=== PATIENT | male | born 1970 | race Caucasian/White ===

== ENCOUNTER 2016-09-05 10:35 | Emergency (ER) | payer BC, OTHER ==
[2016-09-05 10:52] VITALS: BP 148/103
--- NOTE | 2016-09-05 11:14 | EDM.PDOC ---
ED HPI GENERAL MEDICAL PROBLEM - General Chief Complaint: Respiratory Problem Stated Complaint: COUGHING UP BLOOD Time Seen by Provider: 09/05/16 11:00 Source of Information: Reports: Patient History Limitations: Reports: No Limitations - History of Present Illness INITIAL COMMENTS - FREE TEXT/NARRATIVE: The patient presents because he is coughing up blood. This started today. He feels like there is something in the back of his throat. He cannot clear it. After he tries to do that he gets some blood in the back of his throat. He has no fever, chills, chest pain or shortness of breath. He has no vomiting or diarrhea. He does have a sore throat. This has never happened to him before. He has no history of DVT or PE. Onset: Gradual Duration: Hour(s): Location: Reports: Head (Throat) Quality: Reports: Sharp Severity: Moderate Improves with: Reports: None Worsens with: Reports: None Context: Reports: Activity (This happened at work) Associated Symptoms: Reports: Cough. Denies: Diaphoresis, Fever/Chills, Nausea/ Vomiting, Shortness of Breath Throat Pain Score (Numeric/FACES): 4 - Related Data Allergies Allergy/AdvReac Type Severity Reaction Status Date / Time insulin aspart protamine Allergy Swelling Verified 09/05/16 10:52 human lisinopril Allergy Cough Verified 09/05/16 10:52 meloxicam [From Mobic] Allergy Swelling Verified 09/05/16 10:52 Home Meds: Home Meds Albuterol Sulfate [Proair Hfa] 2 puff IH Q4H PRN 09/05/16 [History] Aspirin 81 mg PO DAILY 09/05/16 [History] Budesonide/Formoterol [Symbicort 160-4.5 MCG] 2 puff INH BID 09/05/16 [History] Hydrochlorothiazide 12.5 mg PO DAILY 09/05/16 [History] Hydrocodone/Acetaminophen [Hydrocodon-Acetaminophen 5-325] 1 - 2 each PO Q6HR PRN #10 tablet 09/05/16 [Rx] Ibuprofen [Motrin] 800 mg PO Q8H 09/05/16 [History] Losartan [Cozaar] 100 mg PO DAILY 09/05/16 [History] Penicillin V Potassium 500 mg PO Q6HR #40 tab 09/05/16 [Rx] Pravastatin Sodium [Pravastatin (Pravachol)] 40 mg PO DAILY 09/05/16 [History] Pregabalin [Lyrica] 300 mg PO BID 09/05/16 [History] QUEtiapine [SEROquel] 50 mg PO BEDTIME 09/05/16 [History] Venlafaxine [Venlafaxine HCl ER] 2.5 tab PO BID 09/05/16 [History] Past Medical History Cardiovascular History: Reports: High Cholesterol, Hypertension Respiratory History: Reports: Asthma Gastrointestinal History: Reports: Diverticulosis Musculoskeletal History: Reports: Fibromyalgia Psychiatric History: Reports: Anxiety, Depression, PTSD - Past Surgical History HEENT Surgical History: Reports: Tonsillectomy GI Surgical History: Reports: Cholecystectomy, Hernia Repair/Other, Other (See Below) Other GI Surgeries/Procedures: sigmoid colectomy Male Surgical History: Reports: Vasectomy Neurological Surgical History: Reports: Discectomy, Lumbar Spine Social & Family History - Tobacco Use Smoking Status *Q: Never Smoker - Caffeine Use Caffeine Use: Reports: Coffee - Recreational Drug Use Recreational Drug Use: No ED ROS GENERAL - Review of Systems Review Of Systems: See Below Constitutional: Reports: No Symptoms HEENT: Reports: Throat Pain Respiratory: Reports: No Symptoms Cardiovascular: Reports: No Symptoms Endocrine: Reports: No Symptoms GI/Abdominal: Reports: No Symptoms : Reports: No Symptoms Musculoskeletal: Reports: No Symptoms Skin: Reports: No Symptoms ED EXAM, GENERAL - Physical Exam Exam: See Below Exam Limited By: No Limitations General Appearance: Alert, No Apparent Distress Ears: Normal External Exam Nose: Normal Inspection Throat/Mouth: Other (Edema of the uvula and the oropharynx with some dried blood.) Head: Atraumatic, Normocephalic Neck: Normal Inspection Respiratory/Chest: No Respiratory Distress, Lungs Clear, Normal Breath Sounds Cardiovascular: Regular Rate, Rhythm, No Edema, No Murmur GI/Abdominal: Soft, Non-Tender, No Organomegaly, No Mass Back Exam: Normal Inspection Extremities: Normal Inspection Course - Vital Signs Last Recorded V/S: Last Vital Signs Temp 98.0 F 09/05/16 10:48 Pulse 97 09/05/16 10:48 Resp 18 09/05/16 10:48 BP 148/103 H 09/05/16 10:48 Pulse Ox 99 09/05/16 10:48 - Orders/Labs/Meds Orders: Active Orders 24 hr Category Date Time Status CULTURE STREP A CONFIRMATION [RM] Stat Lab 09/05/16 11:08 Results STREP SCRN A RAPID W CULT CONF [RM] Stat Lab 09/05/16 11:08 Results methylPREDNISolone Sod Succ [Solu-MEDROL] Med 09/05/16 12:00 Once 125 mg IM ONETIME ONE - Re-Assessments/Exams Free Text/Narrative Re-Assessment/Exam: 09/05/16 12:01 His rapid strep is negative. I am worried about pharyngitis from another bacteria. I will get him on an antibiotic. Departure - Departure Time of Disposition: 12:15 Disposition: Home, Self-Care 01 Condition: Good Clinical Impression: Uvular edema Pharyngitis Qualifiers: Pharyngitis/tonsillitis etiology: other specified organisms Qualified Code(s): J02.8 - Acute pharyngitis due to other specified organisms - Discharge Information Prescriptions: Hydrocodone/Acetaminophen [Hydrocodon-Acetaminophen 5-325] 1 - 2 each PO Q6HR PRN #10 tablet PRN Reason: Pain Penicillin V Potassium 500 mg PO Q6HR #40 tab Referrals: Crystal Gardner DO [Primary Care Provider] - Forms: ED Department Discharge, ED Return to Work/School Form Additional Instructions: Take the medications as prescribed. You may also take motrin or aleve for the swelling. Drink ice cold water a few times per day to help with the swelling. Please return if you are worse. - My Orders Last 24 Hours: My Active Orders 09/05/16 11:08 CULTURE STREP A CONFIRMATION [RM] Stat STREP SCRN A RAPID W CULT CONF [RM] Stat 09/05/16 12:00 methylPREDNISolone Sod Succ [Solu-MEDROL] 125 mg IM ONETIME ONE - Assessment/Plan Last 24 Hours: My Active Orders 09/05/16 11:08 CULTURE STREP A CONFIRMATION [RM] Stat STREP SCRN A RAPID W CULT CONF [RM] Stat 09/05/16 12:00 methylPREDNISolone Sod Succ [Solu-MEDROL] 125 mg IM ONETIME ONE
[2016-09-05] MEDS ORDERED: methylPREDNISolone Sodium Succinate 125 MG/2 ML SDV IM ONE (12:00)
== END 2016-09-05 12:25 | disposition home or self-care (01) ==
LOC: JD.ED 10:35
DX: J02.8 Acute pharyngitis due to other specified organisms (principal); I10 Essential (primary) hypertension; E78.00 Pure hypercholesterolemia, unspecified; J45.909 Unspecified asthma, uncomplicated; F41.9 Anxiety disorder, unspecified; F32.9 Major depressive disorder, single episode, unspecified; Z90.49 Acquired absence of other specified parts of digestive tract; Z98.890 Other specified postprocedural states; Z79.82 Long term (current) use of aspirin; Z79.899 Other long term (current) drug therapy; Z88.8 Allergy status to other drugs, medicaments and biological substances; Z98.52 Vasectomy status
CPT/HCPCS: 87081; 87430; 96372; 99284; J2930; 99283